=== PATIENT | female | born 1990 | race Caucasian/White ===

== ENCOUNTER 2016-12-20 03:55 | Inpatient (IN) | payer SELFPAY ==
[~2016-12-20 03:55] MED LIST: ADVIL200 M1 PO; ESCITALOPRAM OX10 M1 PO; NORCO 5/325 TAB1 TAB PO; SPRINTEC1 TAB PO
[2016-12-20 04:34] LABS: URINE BILIRUBIN NEGATIVE (NEG); URINE BLOOD LARGE (NEG); URINE GLUCOSE (UA) NEGATIVE (NEG); URINE KETONE NEGATIVE (NEG); URINE LEUKOCYTE ESTERASE POSITIVE (NEG); URINE NITRITE NEGATIVE (NEG); URINE PROTEIN SMALL (NEG)
[2016-12-20 04:38] LABS: URINE APPEARANCE CLOUDY; URINE COLOR YELLOW
[2016-12-20 04:40] LABS: URINE BACTERIA 4+; URINE EPITHELIAL CELLS FULL FIELD /[HPF] (0-10); URINE RBC 0-3 /[HPF] (0-5); URINE WBC 20-30 /[HPF] (0-5)
[2016-12-20 05:04] LABS: BASO % 0.9 % (0-2); BASO ABSOLUTE COUNT 0.1 tho/cmm (0.0-0.2); EOSINOPHIL ABSOLUTE COUNT 0.1 tho/cmm (0.0-0.7); HCT-HEMATOCRIT 38.6 % (34.0-49.0); HGB-HEMOGLOBIN 13.4 gm/dl (12.0-15.5); IMMATURE GRANULOCYTES ABSOLUTE 0.01 tho/cmm (0-0.03); IMMATURE GRANULOCYTES PERCENT 0.1 % (0-0.3); LYMPH % 40.3 % (20-45); LYMPH ABSOLUTE COUNT 3.1 tho/cmm (0.8-4.5); MCH (MEAN CORPUSCULAR HGB) 31.4 pg (28.0-32.0); MCHC MEAN CORPUSCULAR HGB CONC 34.7 % (32.0-36.0); MCV (MEAN CELL VOLUME) 90.4 fl (82.0-96.0); MEAN PLATELET VOLUME 10.3 cmc (9.4-12.4); MONO % 9.5 % (0-12); MONOCYTE ABSOLUTE COUNT 0.7 tho/cmm (0.0-1.2); NEUTROPHIL ABSOLUTE COUNT 3.7 tho/cmm (1.6-8.0); NEUTROPHIL-AUTOMATED 3.7 tho/cmm (1.6-8.0); NEUTROPHILS % 48.2 % (40-80); PLATELET COUNT 202 tho/cmm (150-450); RED BLOOD COUNT 4.27 mil/cmm (4.00-5.20); WHITE BLOOD COUNT 7.7 tho/cmm (4.0-10.0)
[2016-12-20 05:14] LABS: INR 0.9 INR (0.9-1.1); PROTHROMBIN TIME 10.3 SECONDS (9.0-13.6)
[2016-12-20 05:18] LABS: URINE BILIRUBIN NEGATIVE (NEG); URINE BLOOD NEGATIVE (NEG); URINE GLUCOSE (UA) NEGATIVE (NEG); URINE KETONE NEGATIVE (NEG); URINE LEUKOCYTE ESTERASE NEGATIVE (NEG); URINE NITRITE NEGATIVE (NEG); URINE PROTEIN NEGATIVE (NEG)
[2016-12-20 05:26] LABS: URINE APPEARANCE CLEAR; URINE COLOR YELLOW
[2016-12-20 05:35] LABS: ALB/GLOB RATIO 0.8 (0.8-2.0); ALBUMIN 3.2 g/dl (3.5-5.0); ALKALINE PHOSPHATASE 73 U/L (33-138); ALT/SGPT 29 U/L (12-78); ANION GAP 11 mmol/L (0-20); AST/SGOT 22 U/L (10-40); BILIRUBIN,TOTAL 0.3 mg/dl (0-1.5); BLOOD UREA NITROGEN 10 mg/dl (6-24); CALCIUM 8.1 mg/dl (8.5-10.5); CARBON DIOXIDE-VENOUS 21 mmol/L (22-32); CHLORIDE 112 mmol/l (96-110); CREATININE 0.87 mg/dl (0.50-1.10); GLUCOSE 91 mg/dL (70-110); MAGNESIUM 1.8 mg/dl (1.3-2.6); POTASSIUM 3.7 mmol/L (3.7-5.1); SODIUM 140 mmol/L (135-145); eGFR VALUE FOR BLACK >90 mL/Min
[2016-12-20 05:43] LABS: TSH-THYROID STIMULATING HORM. 2.27 uIU/ml (0.40-3.80)
[2016-12-20 06:05] LABS: PROCALCITONIN <0.05 ng/ml (0.05-0.09)
[2016-12-20 06:09] LABS: ESR-ERYTHROCYTE SED RATE 14 mm/hr (0-20)
[2016-12-20 09:13] LABS: CSF GLUCOSE 49 mg/dl (40-75)
[2016-12-20 09:17] LABS: CSF APPEARANCE CLEAR (CLEAR); CSF COLOR COLORLESS (COLORLESS); CSF TUBE NUMBER CSF TUBE 3
[2016-12-20 09:20] LABS: CSF WBC CT 271 cmm (0-10)
[2016-12-20 09:47] LABS: CSF RBC CT 1 cmm (0)
[2016-12-20 10:06] LABS: CSF LYMPHOCYTES 83 % (40-80); CSF MONOCYTES 12 % (15-45); CSF NEUTROPHILS 5 % (0-6)
--- NOTE | 2016-12-21 20:20 | NUR ---
VIRTUAL CARE NOTE: ASSESSMENT DEFERRED. ATTEMPTED TO ROUND X3. PT EITHER ON PHONE OR NOW SLEEPING. WILL CONTINUE WITH CHART REVIEW.
[2016-12-22] MEDS ORDERED: MOTRIN IB200 M1 PO (11:11)
[2016-12-22] MEDS ORDERED: PERCOCET 5-3251 EACH PO (11:12)
[2016-12-24] MEDS ORDERED: REGLAN10 M2 PO (15:14)
[2016-12-24] MEDS ORDERED: KETOROLAC TROME10 MG PO (15:15)
[2016-12-24] MEDS ORDERED: STOP THE FOLLOWING (15:15)
== END 2016-12-24 17:00 | DRG 75 ==
LOC: EDMED 03:55 → EMR2 12:33 → 5WD 14:15
PROVIDERS: Emergency Medicine; ADMIT Internal Medicine
PROC: 009U3ZX Drainage of Spinal Canal, Percutaneous Approach, Diagnostic (ICD-10-PCS; principal; 2016-12-20)
PROC: B01B1ZZ Fluoroscopy of Spinal Cord using Low Osmolar Contrast (ICD-10-PCS; 2016-12-20)
DX: A87.9 Viral meningitis, unspecified (principal); Z68.43 Body mass index [BMI] 50.0-59.9, adult; G97.1 Other reaction to spinal and lumbar puncture; Y84.4 Aspiration of fluid as the cause of abnormal reaction of the patient, or of later complication, without mention of misadventure at the time of the procedure; Y92.238 Other place in hospital as the place of occurrence of the external cause; E66.09 Other obesity due to excess calories; G43.909 Migraine, unspecified, not intractable, without status migrainosus
CPT/HCPCS: J0696; J1100; J1200; J1885; J2270; J2405; J2765; J3360; J3370; J7030; J7121; P9612